=== PATIENT | female | born 1990 | race American Indian/Alaskan Native ===

== ENCOUNTER 2016-08-03 07:23 | Emergency (ER) | payer BC ==
[2016-08-03 07:36] VITALS: BP 127/77
[2016-08-03] MEDS ORDERED: MOTRIN PO ONE (07:48)
--- NOTE | 2016-08-03 07:54 | Emergency Department Report ---
ED Back Pain/Injury HPI - General Chief Complaint: Back Pain/Injury Stated Complaint: BACK PAIN Time Seen by Provider: 08/03/16 07:45 Source: patient, family Limitations: No Limitations - History of Present Illness Initial Comments: Patient here reports that she was stretching this morning prior to coming to work and she started having back stiffness. She reports back pain worsened after stretching this morning. Denies any back injury pain is 7 out of 10 denies any nausea vomiting. Denies any urinary burning frequency or urgency. Last menstrual period 07/09/2016. Patient describes the pain as stiffness and has not taken [id number] medication. Denies any fever or chills. The left lower bladder control. Denies any radiation of pain. MD Complaint: back pain, back injury -: This morning Similar Symptoms Previously: No Place: home Radiation: none Severity: moderate Severity scale (0 -10): 7 Quality: other (stiff) Consistency: intermittent Improves With: immobilization Worsens With: movement, walking Context: other (stretching) Associated Symptoms: denies: denies other symptoms Treatments Prior to Arrival: other (none) - Related Data Previous Rx's Medication Instructions Recorded Last Taken Type Cyclobenzaprine [Flexeril] 10 mg PO TID PRN #15 tablet 08/03/16 Unknown Rx Ibuprofen [Motrin] 600 mg PO Q8H PRN #15 tablet 08/03/16 Unknown Rx Nitrofurantoin Christian/M-Cryst 100 mg PO Q12HR #14 capsule 08/03/16 Unknown Rx [Macrobid CAP] Allergies Allergy/AdvReac Type Severity Reaction Status Date / Time No Known Allergies Allergy Unverified 08/03/16 07:32 ED Review of Systems ROS: Stated complaint: BACK PAIN Other details as noted in HPI Comment: All other systems reviewed and negative Constitutional: no symptoms reported Eyes: denies: eye pain, vision change Respiratory: no symptoms reported Cardiovascular: denies: chest pain, palpitations Gastrointestinal: denies: abdominal pain, nausea, vomiting, diarrhea Genitourinary: denies: urgency, dysuria, frequency, hematuria, discharge, abnormal menses Skin: denies: rash Neurological: denies: headache, weakness, numbness, paresthesias, confusion, abnormal gait, vertigo ED Past Medical Hx - Past Medical History Previous Medical History?: No Additional medical history: vaginal delivery 05-12-2012 - Surgical History Past Surgical History?: No - Family History Family history: no significant - Social History Smoking Status: Never Smoker Substance Use Type: Alcohol, Non Opiate Pain - Medications Home Medications: Home Medications Medication Instructions Recorded Confirmed Last Taken Type Cyclobenzaprine [Flexeril] 10 mg PO TID PRN #15 tablet 08/03/16 Unknown Rx Ibuprofen [Motrin] 600 mg PO Q8H PRN #15 tablet 08/03/16 Unknown Rx Nitrofurantoin Christian/M-Cryst 100 mg PO Q12HR #14 capsule 08/03/16 Unknown Rx [Macrobid CAP] ED Physical Exam - General Limitations: No Limitations General appearance: alert, in no apparent distress - Head Head exam: Present: atraumatic, normocephalic, normal inspection - Eye Eye exam: Present: normal appearance, PERRL, EOMI. Absent: nystagmus, periorbital swelling, periorbital tenderness Pupils: Present: normal accommodation - Neck Neck exam: Present: normal inspection, full ROM. Absent: tenderness, meningismus, lymphadenopathy - Respiratory Respiratory exam: Present: normal lung sounds bilaterally. Absent: respiratory distress, chest wall tenderness - Cardiovascular Cardiovascular Exam: Present: regular rate, normal rhythm, normal heart sounds - GI/Abdominal GI/Abdominal exam: Present: soft, normal bowel sounds. Absent: distended, tenderness, guarding, rebound, rigid - Extremities Exam Extremities exam: Present: normal inspection, full ROM, normal capillary refill. Absent: tenderness, pedal edema, joint swelling, calf tenderness - Back Exam Back exam: Present: normal inspection, full ROM. Absent: tenderness, CVA tenderness (R), CVA tenderness (L), muscle spasm, paraspinal tenderness, vertebral tenderness, rash noted - Expanded Back Exam Expanded Back exam: Absent: saddle anesthesia Back exam: Negative Straight Leg Raising: Left, Right - Neurological Exam Neurological exam: Present: alert, oriented X3, normal gait, reflexes normal. Absent: motor sensory deficit - Expanded Neurological Exam Expanded Neurological exam: Absent: innattentive, memory loss-remote event, memory loss- recent event, ataxia, receptive aphasia, expressive aphasia, total aphasia, tremor, protecting the airway Patient oriented to: Present: person, place, time Speech: Present: fluid speech Cranial nerves: EOM's Intact: Normal, Gag Reflex: Normal, Tongue Deviation: Normal, Nystagmus: Normal, Facial Sensation: Normal Cerebellar function: Romberg: Normal Upper motor neuron: Pronator Drift: Normal, Sensory Extinction: Normal Sensory exam: Upper Extremity Light Touch: Normal, Upper Extremity Temperature: Normal, UE 2 Point Discrimination: Normal, Lower Extremity Light Touch: Normal, Lower Extremity Temperature: Normal, LE 2 Point Discrimination: Normal Motor strength exam: RUE: 5, LUE: 5, RLE: 5, LLE: 5 DTR: bicep (R): 2+, bicep (L): 2+, tricep (R): 2+, tricep (L): 2+, knee (R): 2+ , knee (L): 2+, ankle (R): 2+, ankle (L): 2+ Best Eye Response ([place]): (4) open spontaneously Best Motor Response ([place]): (6) obeys commands Best Verbal Response ([place]): (5) oriented [place]um Total: 15 - Psychiatric Psychiatric exam: Present: normal affect, normal mood - Skin Skin exam: Present: warm, dry, intact, normal color. Absent: rash ED Course Vital Signs 08/03/16 08/03/16 07:32 07:51 Temperature 98.4 F Pulse Rate 74 Respiratory 18 16 Rate Blood Pressure 127/77 O2 Sat by Pulse 100 Oximetry - Reevaluation(s) Reevaluation #1: 08/03/16 08:00 stable throughout ED course. She was given Motrin 600 mg in emergency room for back pain Reevaluation #2: 08/03/16 08:19 Patient insisted on having x-ray of her lower back because she thinks it's more than a urinary tract infection. 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 Explained to her that radiation can have a negative effect on her female productive system and if she does not need an x- ray 08/03/16 08:20 ED Medical Decision Making - Lab Data Lab Results 08/03/16 Range/Units 07:44 Urine Color Yellow (Yellow) Urine Turbidity Clear (Clear) Urine pH 5.0 (5.0-7.0) Ur Specific [place] 1.012 (1.003-1.030) Urine Protein <15 mg/dl (Negative) mg/dL Urine Glucose (UA) Neg (Negative) mg/dL Urine Ketones Neg (Negative) mg/dL Urine Blood Neg (Negative) Urine Nitrite Neg (Negative) Ur Reducing Substances Not Reportable Urine Bilirubin Neg (Negative) Urine Ictotest Not Reportable Urine Urobilinogen < 2.0 (<2.0) mg/dL Ur Leukocyte Esterase Mod (Negative) Urine WBC (Auto) 3.0 (0.0-6.0) /HPF Urine RBC (Auto) 4.0 (0.0-6.0) /HPF U Epithel Cells (Auto) 9.0 (0-13.0) /HPF Urine Bacteria (Auto) 1+ (Negative) /HPF Urine HCG, Qual Negative (Negative) - Radiology Data Radiology results: report reviewed X-ray of the lumbar spine revealed no acute abnormalities. - Medical Decision Making ED course: Here complaining of lower back pain after stretching this morning. Her back exam is normal she does not have any vertebral tenderness. No C-spine tenderness. No radiculopathy. She does not have any paraspinal tenderness. I discussed with patient that her x-ray of her lower back was within normal limits she also viewed x-ray films. She is not satisfied. Patient will urinary tract infection. She was educated on diagnosis and treatment plan. Discharged home in stable condition to follow up with primary care physician and 4 days. Patient was given Motrin 600 mg in emergency room for lower back pain. Critical care attestation.: If time is entered above; I have spent that time in minutes in the direct care of this critically ill patient, excluding procedure time. ED Disposition Clinical Impression: Acute cystitis without hematuria Lower back pain Qualifiers: Chronicity: acute Back pain laterality: bilateral Sciatica presence: without sciatica Qualified Code(s): M54.5 - Low back pain Disposition: DISCHARGED TO HOME OR SELFCARE Is pt being admited?: No Does the pt Need Aspirin: No Condition: Stable Instructions: Urinary Tract Infection in Women (ED), Acute Low Back Pain (ED) Additional Instructions: Please increase her fluid intake to 2 to 3 L of fluid per day Take antibiotic as prescribed Please follow-up with your primary care doctor if he does not have a primary care physician then he can follow-up with outside Medical Center. Prescriptions: Cyclobenzaprine [Flexeril] 10 mg PO TID PRN #15 tablet PRN Reason: Muscle Spasm Ibuprofen [Motrin] 600 mg PO Q8H PRN #15 tablet PRN Reason: Pain Nitrofurantoin Christian/M-Cryst [Macrobid CAP] 100 mg PO Q12HR #14 capsule Referrals: PRIMARY CARE, [Primary Care Provider] - 08/07/16 Forms: Work/School Release Form(ED)
[2016-08-03 07:58] LABS: Bacteria,Urine 1+ /HPF (Negative); Bilirubin,Urine NEG (Negative); Blood,Urine NEG (Negative); Ketones,Urine NEG (Negative); Leukocyte Esterase,Urine MOD (Negative); Nitrite,Urine NEG (Negative); Protein,Urine <15 mg/dL mg/dL (Negative); Urobilinogen,Urine < 2.0 mg/dL (<2.0)
--- NOTE | 2016-08-03 08:40 | XRay Report ---
LUMBAR SPINE RADIOGRAPHS: INDICATION: Back pain. COMPARISON: None similar at this institution. FINDINGS: AP and lateral lumbar spine radiographs demonstrate preserved lumbar vertebral body stature, alignment and disc heights. Possibly lumbarized S1. Nonobstructive bowel gas pattern. Normal bilateral SI joints. CONCLUSION: No acute lumbar radiographic abnormality, as described. Thank you for the opportunity to participate in this patient's care.
== END 2016-08-03 08:49 | disposition home or self-care (01) ==
LOC: ED 07:23
DX: N30.00 Acute cystitis without hematuria (principal); M54.5 Low back pain
CPT/HCPCS: 72100; 81001; 81025; 99283